=== PATIENT | female | born 1975 | race African-American/Black ===

== ENCOUNTER 2021-02-03 08:00 | Inpatient (IN) | payer OTHER, SELFPAY ==
[2021-02-03] VITALS (36 sets, daily range): BP systolic 113–163; BP diastolic 57–99; PULSE 76–113; RESP 18–35; TEMP 36.4–37.1; O2SAT 88–98; BMI 43.2
--- NOTE | ~2021-02-03 | CT_ITS ---
EXAMINATION: CTA chest PE protocol DATE: 02/03/2021 10:40 CDT INDICATION: Chest pain and shortness of breath. Chills. Cough. TECHNIQUE: Computed tomographic angiography (CTA) of the chest was performed with 100 mL Omnipaque-35 0 intravenous contrast. The dose-length product was 903.97 mGy-cm. Maximum intensity projection 3D-re constructions of the aorta and other arteries were constructed by the technologist on a separate work station. Automated exposure control and iterative reconstruction technique were employed. COMPARISON: None. FINDINGS: Study is technically limited for evaluation of pulmonary embolism due to contrast bolus nathaniel ing and motion artifact. No evidence for thoracic aortic aneurysm or dissection. No significant pleur al or pericardial effusion. No thoracic lymphadenopathy. There is extensive patchy airspace consolida tion, consistent with pneumonia. There is dependent high density material in the gallbladder which may represent sludge and/or stones. IMPRESSION: 1. Patchy bilateral airspace consolidation, consistent with pneumonia. 2: Study limited for evaluation of pulmonary embolism. 3: High density material in the gallbladder which may represent sludge and/or gallstones. Reviewed, dictated and finalized at location B. IMPRESSION: 1. Patchy bilateral airspace consolidation, consistent with pneumonia. 2: Study limited for evaluation of pulmonary embolism. 3: High density material in the gallbladder which may represent sludge and/or g allstones.
--- NOTE | ~2021-02-03 | XR_ITS ---
EXAMINATION: XR chest 1V portable INDICATION: Shortness of breath TECHNIQUE: Portable AP chest at 0905 hours COMPARISON: None available FINDINGS: There are diffuse patchy opacities throughout all lung zones, worse in the mid and lower jourdan ng zones. There is no pleural effusion or pneumothorax. The cardiomediastinal silhouette is normal. IMPRESSION: 1. Diffuse lung disease, consistent with pneumonia and/or pulmonary edema. Reviewed, dictated and finalized at location A.
--- NOTE | 2021-02-03 08:13 | ECG_ITS ---
Measurements Intervals [place] Rate: 96 P: 60 TX: 126 QRS: -11 QRSD: 93 T: -11 QT: 293 QTc: 371 Interpretive Statements SINUS RHYTHM BORDERLINE R WAVE PROGRESSION, ANTERIOR LEADS BORDERLINE T WAVE ABNORMALITY- INFERIOR LEADS BASELINE ARTIFACT- I, II, III, AVR, AVF, V1, V3-V6 BORDERLINE ECG Electronically Signed On 02-03-2021 8:21:42 CDT by Samuel Daniels D.O.
[2021-02-03] MEDS: Please add drug allergy info to patient profile. 1 EACH XX (08:26)
--- NOTE | 2021-02-03 08:33 | ED.SOB ---
HPI - SOB/Dyspnea General Chief Complaint: Chest Pain Stated Complaint: chest pain, N/V Time Seen by Provider: 02/03/21 08:12 History of Present Illness HPI Narrative: Feeling generally unwell for the past 3 days. Symptoms include nausea, vomiting, fatigue, cough, chest pain. Today she became very short of breath. Unsure if she has had a fever. Her friend reports that she seemed to be in and out of consciousness. She has not had her COVID-19 vaccine. She works in a daycare. Related Data Home Medications Medication Instructions Recorded Confirmed Claritin-D 24 Hour 1 tablet PO DAILY 02/03/21 02/03/21 amlodipine 10 mg PO DAILY 02/03/21 02/03/21 Allergies Allergy/AdvReac Type Severity Reaction Status Date / Time seasonal Allergy Congested Uncoded 02/03/21 12:31 Review of Systems Review of Systems: All systems reviewed & are unremarkable except as noted in HPI and below Constitutional: Constitutional: Reports chills, Reports fatigue and Reports weakness Eyes: Eyes: Reports no additional eye complaints ENT: Denies sore throat Cardiovascular: Cardiovascular: Reports chest pain and Denies radiating jaw, neck or arm pain Respiratory: Respiratory: Reports chest congestion, Reports cough and Reports dyspnea Gastrointestinal: Gastrointestinal: Reports nausea and Reports vomiting Genitourinary: Genitourinary: Reports no additional female genitourinary complaints Musculoskeletal: Musculoskeletal: Reports back pain and Reports myalgias Integumentary/Breasts: Skin/Breast: Reports system reviewed and no additional complaints, except as docu Neurologic: Reports headache(s) and Reports weakness Endocrine: Endocrine: Reports fatigue PMFSH Past Medical History Medical History (Updated 02/03/21 @ 18:03 by Haile Alas MD) Eczema HTN (hypertension) Seasonal allergies Surgical History Surgical History (Updated 02/03/21 @ 13:18 by Mikayla Contreras NP) H/O dilation and curettage H/O sinus surgery X2 Family History Family History (Updated 02/03/21 @ 13:21 by Mikayla Contreras NP) Grandparent Hypertension Mother Motor vehicle accident Father Kidney failure Social History Social History (Updated 02/03/21 @ 13:23 by Mikayla Contreras NP) Social History: The patient is single and has 4 children. 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 The patient is a lifelong nonsmoker. She does use edible marijuana. The patient socially drinks alcohol on the weekend. The patient is a full code. The patient desires to be a full code. Smoking status: Never smoker Alcohol intake: current Drinks per week: 3 Substance use: current Substance use type: marijuana Occupation/Education: daycare Gender identity (if verbalized by the patient): Female Spiritual care concerns: No Exam Const: General: alert and ill appearing Nutritional Appearance: obese Orientation/consciousness: patient oriented x3 Other: Mild distress HENMT: Head: normal to inspection Eyes: Pupils: Equal, round and reactive pupils present Neck: Neck: normal visual inspection Chest: Chest palpation & inspection: normal inspection of the chest and no tenderness Resp: Effort & Inspection: tachypneic Auscultation: crackles Cardio: Rate: tachycardic Rhythm: regular rhythm GI: GI Palp: Yes Soft to palpation and No Tenderness to palpation present (GI) Skin: General skin exam: normal color Neuro: General: patient oriented x3 and moves all extremities Extrem: Other: mild left ankle edema Course Vital Signs Vital signs: Vital Signs Pulse Rate 99 02/03/21 08:16 Respiratory Rate 35 H 02/03/21 08:16 Blood Pressure 145/76 H 02/03/21 08:16 Pulse Oximetry 95 02/03/21 08:16 Temperature 36.4 C 02/03/21 16:00 Pulse Rate 79 02/03/21 16:00 Respiratory Rate 18 02/03/21 16:00 Blood Pressure 131/66 02/03/21 16:00 Pulse Oximetry 96 02/03/21 16:00 MDM - SOB/Dyspnea Diff
[2021-02-03] MEDS: IPRATROPIUM BR 0.02% INH SOLN 0.5 MG/2.5 ML VIAL INHALATION ×2 (08:41→20:32)
[2021-02-03] MEDS: ALBUTEROL SULFATE NEB 2.5 MG/0.5 ML INH 5 MG INHALATION ×2 (08:42→20:32)
[2021-02-03 08:51] LABS: Basophils Percent Auto 0.1 % (0.2-1.2); Hemoglobin 13.4 g/dL (12.0-15.0); Immature Granulocyte Absolute 0.02 K/mm3 (0.00-0.031); Immature Granulocyte Percent A 0.3 % (0-0.5); Lymphocytes Percent Auto 9.9 % (18.3-44.2); Mean Corpuscular HGB Conc 32.7 g/dl (32-36); Mean Corpuscular Hemoglobin 26.1 pg (26-34); Mean Corpuscular Volume 79.8 fl (80-100); Mean Platelet Volume 11.1 fl (7.4-10.4); Monocytes Absolute Auto 0.1 K/mm3 (0.1-0.6); Neutrophils Absolute Auto 6.2 K/mm3 (1.3-6.7); Neutrophils Percent Auto 87.7 % (45.5-73.1); Platelet Count Result 245 k/mm3 (150-375); Red Blood Count 5.14 M/mm3 (4.2-5.4); White Blood Count 7.1 K/mm3 (4.5-10.0)
[2021-02-03] MEDS: DEXAMETHASONE SOD PHOS INJ 4 MG/ML VIAL 10 MG IV PUSH (08:51)
[2021-02-03 08:53] LABS: Alveolar/Arterial O2 Gradient 111.5 mmHg; Base Excess ABG -2.2 mEq/l (+/-2.0); Carboxyhemoglobin 0.6 % THb (0-2.0); Fractional Inspired Oxygen 28 %; HCO3 ABG 19.6 mEq/l (22.0-26.0); Methemoglobin ABG 0.3 %THb (0-1.5); Oxygen Content ABG 17.3 %vol (16.0-22.0); Oxygen Saturation ABG 92.3 % (95.0-100.0); Oxyhemoglobin 90.5 % THb (90.0-100.0); PCO2 ABG 26.3 mmHg (35.0-45.0); PO2 ABG 57.1 mmHg (80.0-100.0); PO2 FiO2 Ratio Arterial Blood 2.04 %; Reduced Hemoglobin 8.6 %THb (0-5.0); Total Hemoglobin 13.6 g/dL (12.0-18.0); pH ABG 7.491 (7.350-7.450)
[2021-02-03 08:54] LABS: Device NASAL CANNULA; Modified Allen's Test Pass; Site Drawn RIGHT RADIAL
[2021-02-03 09:15] LABS: Alanine Aminotransferase 31 U/L (4-35); Albumin Level 4.3 g/dL (3.5-5.1); Alkaline Phosphatase 79 U/L (38-126); Anion Gap 11 mmol/L (8-16); Aspartate Amino Transferase 54 U/L (14-36); Bilirubin,Total 0.8 mg/dL (0.2-1.3); Blood Urea Nitrogen 14 mg/dL (7-17); Calcium 10.7 mg/dL (8.4-10.2); Carbon Dioxide 21 mmol/L (22-30); Chloride 107 mmol/L (98-107); Estimated CRCL calculation 82 ml/min; Estimated Glomerular Filt Rate 59; Glucose 134 mg/dL (65-105); Lipase 152 U/L (23-300); Potassium 3.5 mmol/L (3.4-5.0); Sodium 139 mmol/L (137-145)
[2021-02-03 09:15] LABS: Add Urine Microscopic? YES; Appearance Urine Cloudy (Clear); Bacteria Urine Trace /hpf; Bilirubin Urine Negative (Negative); Blood Urine 1+ (Negative); Color Urine Amber (Yellow); Glucose Urine UA Negative (Negative); Ketones Urine Negative (Negative); Leukocyte Esterase Ur 2+ LEU/UL (Negative); Mucus Urine Few /lpf; Nitrate Urine Negative (Negative); Protein Urine 3+ mg/dL (Negative); RBC Urine 0-2 /hpf (0-2); Squamous Epithelial Cell Urine Many /hpf (Few); Urobilinogen Urine Negative mg/dL (<2.0)
[2021-02-03 09:21] LABS: Troponin I < 0.012 ng/mL (0.000-0.034)
[2021-02-03 09:24] LABS: NT Pro B Type Natriuretic Pept 17 pg/mL (5-100)
[2021-02-03 09:58] LABS: Prothrombin Time 13.4 Seconds (11.1-14.7)
[2021-02-03 09:59] LABS: Partial Thromboplastin Time 31.2 SECONDS (22.3-36.8)
[2021-02-03 10:01] LABS: D Dimer 0.83 ug/mL (<0.48)
--- NOTE | 2021-02-03 10:28 | PC.NURSE ---
Pt to CT.
[2021-02-03] MEDS: ONDANSETRON INJ 4 MG/2 ML VIAL IV PUSH (10:47)
[2021-02-03 12:03] LABS: Troponin I < 0.012 ng/mL (0.000-0.034)
--- NOTE | 2021-02-03 12:52 | ADMGEN ---
This patient, Andreea Mathur, was admitted to [facility] Surg Room 327-01 at 1205. Patient/family oriented to hospital policies and general routines including ID bracelet, bed and alarms, visiting hours, pain management, procedures, bathroom and other care routines, personal items, smoking policy, room service/diet, and visiting hours. Information on how to activate the Rapid Response Team has been discussed. Patient/Family are encouraged to report perceived risks to care and to ask questions if they do not understand what they are told or what they should do.
--- NOTE | 2021-02-03 12:57 | PM.IMHP ---
H&P: HPI History of Present Illness Date/Time: 02/03/21 12:57 this is a 45-year-old female patient who has a history of hypertension. 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 The patient denies having any sick contacts. However the patient stated she just has not been feeling very well for the last week and a half. She did notice that she had any fever. She stated over the last 3 days she became more short of breath. She does not typically have any lung issues nor does she smoke. She stated that she had a low-grade fever of 99.1 today. She has body aches. She is very fatigued. Chest x-ray was read as diffuse lung disease consistent with pneumonia and/or pulmonary edema. Patient was started on azithromycin Rocephin. She was placed on 2 L per nasal cannula. Her D-dimer was noted to be 0.[address] a pulmonary was performed and was read as1. Patchy bilateral airspace consolidation, consistent with pneumonia. 2: Study limited for evaluation of pulmonary embolism. 3: High density material in the gallbladder which may represent sludge and/or gallstones. Patient is being admitted to observation status on the date of service of 02/04/21. Chief Complaint: Short of breath Review of Systems Review of Systems: All systems reviewed & are unremarkable except as noted in HPI and below Constitutional: Constitutional: Reports as per HPI and Reports no additional constitutional complaints Eyes: Eyes: Reports as per HPI and Reports no additional eye complaints ENT: Reports system reviewed and no additional complaints, except as documented and Reports Normal hearing present Cardiovascular: Cardiovascular: Reports no additional cardiovascular complaints Respiratory: Respiratory: Reports no additional respiratory complaints and Reports no additional respiratory complaints Gastrointestinal: Gastrointestinal: Reports as per HPI and Reports no additional gastrointestinal complaints Musculoskeletal: Musculoskeletal: Reports no additional musculoskeletal complaints Integumentary/Breasts: Skin/Breast: Reports system reviewed and no additional complaints, except as docu and Reports as per HPI Neurologic: Reports system reviewed and no additional complaints, except as documented, Reports as per HPI and Reports Normal hearing present Psychiatric: Psychiatric: Reports no additional psychiatric complaints and Reports as per HPI Endocrine: Endocrine: Reports no additional endocrine complaints Hematologic/Lymphatic: Hematologic/Lymphatic: Reports no additional hematologic/lymphatic complaints Allergic/Immunologic: Allergic/Immunologic: Reports no additional allergic/immunologic complaints [facility] Past Medical History Medical History (Updated 02/03/21 @ 13:15 by Mikayla Contreras NP) Eczema HTN (hypertension) Seasonal allergies Surgical History Surgical History (Updated 02/03/21 @ 13:18 by Mikayla Contreras NP) H/O dilation and curettage H/O sinus surgery X2 Family History Family History (Updated 02/03/21 @ 13:21 by Mikayla Contreras NP) Grandparent Hypertension Mother Motor vehicle accident Father Kidney failure Social History Social History (Updated 02/03/21 @ 13:23 by Mikayla Contreras NP) Social History: The patient is single and has 4 children. 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 The patient is a lifelong nonsmoker. She does use edible marijuana. The patient socially drinks alcohol on the weekend. The patient is a full code. The patient desires to be a full code. Smoking status: Never smoker Alcohol intake: current Drinks per week: 3 Substance use: current Substance use type: marijuana Occupation/Education: daycare Gender identity (if verbalized by the patient): Female Spiritual care concerns: No Meds Home Medications and Allergies Home Medications Medication Instructions Recorded Confirmed Type Claritin-D 24 Hour 1 tablet PO DAILY 02/03/21 02/03/21 History amlodipi
[2021-02-03] MEDS: LORATADINE/PSEUDOEPHEDRINE (*CRX) 10/240 MG TABLET ER 24 HR 1 TAB PO (15:29)
[2021-02-03] MEDS: amLODIPine BESYLATE 5 MG TABLET 10 MG PO (15:29)
[2021-02-03] MEDS: SODIUM CHLORIDE 0.9% IV 1,000 ML 75 ML IV CONT (15:30)
--- NOTE | 2021-02-03 18:07 | PCRCNOTE ---
Window of time for administration has passed. See next scheduled administration.
[2021-02-04] VITALS (17 sets, daily range): BP systolic 131–156; BP diastolic 76–86; PULSE 76–98; RESP 16–24; TEMP 36.1–37; O2SAT 92–98
[2021-02-04] MEDS: ALBUTEROL SULFATE NEB 2.5 MG/0.5 ML INH 5 MG INHALATION ×3 (02:13→20:10)
[2021-02-04] MEDS: IPRATROPIUM BR 0.02% INH SOLN 0.5 MG/2.5 ML VIAL INHALATION ×3 (02:13→20:10)
[2021-02-04] MEDS: SODIUM CHLORIDE 0.9% IV 1,000 ML 75 ML IV CONT ×2 (06:22→18:09)
[2021-02-04 06:38] LABS: Lactic Acid Reflex 1.4 mmol/L (0.7-2.1)
[2021-02-04 06:42] LABS: Alanine Aminotransferase 32 U/L (4-35); Albumin Level 3.8 g/dL (3.5-5.1); Alkaline Phosphatase 74 U/L (38-126); Anion Gap 9 mmol/L (8-16); Aspartate Amino Transferase 47 U/L (14-36); Bilirubin,Total 0.5 mg/dL (0.2-1.3); Blood Urea Nitrogen 12 mg/dL (7-17); Calcium 10.7 mg/dL (8.4-10.2); Carbon Dioxide 22 mmol/L (22-30); Chloride 107 mmol/L (98-107); Estimated CRCL calculation 105 ml/min; Estimated Glomerular Filt Rate > 60; Glucose 149 mg/dL (65-105); Magnesium 2.1 mg/dL (1.6-2.3); Potassium 3.5 mmol/L (3.4-5.0); Sodium 138 mmol/L (137-145)
[2021-02-04 06:46] LABS: Hematocrit 40.3 % (37.0-47.0); Hemoglobin 12.9 g/dL (12.0-15.0); Mean Corpuscular Hemoglobin 25.9 pg (26-34); Mean Corpuscular Volume 80.9 fl (80-100); Mean Platelet Volume 12.4 fl (7.4-10.4); Platelet Count Result 190 k/mm3 (150-375); Red Blood Count 4.98 M/mm3 (4.2-5.4); Red Cell Distribution Width 16.2 % (11.5-14.5); White Blood Count 9.3 K/mm3 (4.5-10.0)
[2021-02-04 06:54] LABS: Lactate Dehydrogenase 786 U/L (313-618)
[2021-02-04 07:21] LABS: Atypical Lymphocytes Present; Lymphocytes Absolute Manual 0.74 K/mm3 (1.1-4.5); Neutrophils Percent Manual 92 % (46-73); Platelet Estimate Adequate (Adequate); Total Cells Counted 100
[2021-02-04] MEDS: amLODIPine BESYLATE 5 MG TABLET 10 MG PO (09:14)
[2021-02-04] MEDS: ENOXAPARIN 40 MG/0.4 ML SYRINGE SUB-Q ×2 (09:15→21:53)
[2021-02-04] MEDS: LORATADINE/PSEUDOEPHEDRINE (*CRX) 10/240 MG TABLET ER 24 HR 1 TAB PO (09:18)
[2021-02-04 14:35] LABS: SARS-CoV-2 RNA PCR Positive (Negative)
--- NOTE | 2021-02-04 16:14 | PM.IMPN ---
Progress Note: A&P Assessment and Plan (1) Pneumonia due to COVID-19 virus: Code(s): U07.1 - COVID-19; J12.82 - Pneumonia due to coronavirus disease 2019 Status: Acute Assessment and Plan: Symptom onset 4 days prior to presentation. Tested positive today. CXR at presentation with patchy bilateral airspace consolidation consistent with pneumonia. She is requiring 2 L supplemental O2. Continue IV dexamethasone started on 02/03 Begin IV remdesivir based on increased O2 requirements Discontinue IV antibiotics given viral etiology Supplemental O2 as needed goal saturation 92% or above Supportive care to include bronchodilators, expectorants, and antipyretics Trend acute phase reactants Continue isolation precautions (2) HTN (hypertension): Code(s): I10 - Essential (primary) hypertension Status: Chronic Assessment and Plan: Blood pressure reviewed and has been generally well controlled. Last BP 131/83. Continue with amlodipine. Subjective Date/time seen: 02/04/21 16:14 Interval history: Date of service: 02/04/2021 Andreea Mathur is a 45-year-old female with history of hypertension, seasonal allergies, and eczema who is seen in follow-up for COVID-19 pneumonia. She is starting to feel better. Her shortness of breath at rest is improving. She has mild BERNARD but has been able to ambulate up to the restroom today without any issues. She reports yellowish liquidy stools. This is becoming less frequent but remaining liquid. She has a sore throat. She is coughing occasionally with clear-yellowish sputum production. Denies nausea or vomiting. No fevers or chills. Denies headache. No anosmia or dysgeusia. No body aches. No abdominal pain. Appetite has been good. Denies chest pain or palpitations. No dizziness or lightheadedness. Review of Systems Review of Systems: All systems reviewed & are unremarkable except as noted in HPI and below Exam Narrative: Exam Narrative: Ms. Mathur is a well-nourished, well-appearing 45-year-old female who is lying semi-recumbent in bed. She appears comfortable and is in NARD. Neuro: awake, alert and oriented x4, speech clear, no focal neuro deficits noted HEENMT: normocephalic, atraumatic, EOMI, sclerae anicteric, moist oral mucosa, tongue midline, nares patent Neck: supple, no lymphadenopathy Respiratory: Diminished breath sounds bilaterally with faint crackles in right lung base, no wheezes, nonlabored breathing Cardio: regular rate, regular rhythm with S1-S2 Abdomen: nondistended, normoactive bowel sounds, soft, nontender to palpation Extremities: no edema, erythema, or tenderness to palpation, DP pulses 2+ bilaterally Skin: no rashes or lesions, warm and dry Psych: appropriate mood and affect, judgment and insight intact Objective Data Vital Signs Vital Signs: Vital Signs - 24 hr 02/03/21 20:00 02/03/21 20:32 02/03/21 20:45 Temperature 98.7 F Pulse Rate 88 82 88 Respiratory Rate 21 H 23 H 21 H Blood Pressure 163/80 H Pulse Oximetry 94 02/04/21 00:00 02/04/21 02:13 02/04/21 02:27 Temperature 98 F Pulse Rate 76 82 88 Respiratory Rate 20 22 H 22 H Blood Pressure 156/84 H Pulse Oximetry 98 02/04/21 04:00 02/04/21 07:41 02/04/21 07:52 Temperature 98.6 F Pulse Rate 76 81 85 Respiratory Rate 20 24 H 24 H Blood Pressure 148/86 H Pulse Oximetry 92 94 94 02/04/21 09:15 02/04/21 14:00 02/04/21 14:23 Temperature 97 F L Pulse Rate 98 90 Respiratory Rate 16 24 H Blood Pressure 131/83 Pulse Oximetry 94 96 02/04/21 14:33 Temperature Pulse Rate 89 Respiratory Rate 24 H Blood Pressure Pulse Oximetry Intake/Output Intake/Output: Intake & Output 02/01/21 02/02/21 02/03/21 02/04/21 23:59 23:59 23:59 23:59 Intake Total 1330 2520 Output Total 300 1000 Balance 1030 1520 Meds/Results Medications: Active Medications Generic Name Dose Route Start Last Ad
[2021-02-04] MEDS: REMDESIVIR 200 MG/NS 250 ML 200 MG/250 ML BAG 250 MG IVPB (16:56)
[2021-02-04 19:05] LABS: Alanine Aminotransferase 51 U/L (4-35); Estimated CRCL calculation 117 ml/min; Estimated Glomerular Filt Rate > 60
[2021-02-04 19:12] LABS: Prothrombin Time 13.9 Seconds (11.1-14.7)
[2021-02-04] MEDS: guaiFENesin 12 HR 600 MG TABCR PO (21:53)
[2021-02-05] VITALS (13 sets, daily range): BP systolic 131–160; BP diastolic 76–99; PULSE 69–101; RESP 18; TEMP 36.1–36.7; O2SAT 90–97
[2021-02-05] MEDS: ALBUTEROL SULFATE NEB 2.5 MG/0.5 ML INH 5 MG INHALATION ×4 (02:15→21:47)
[2021-02-05] MEDS: IPRATROPIUM BR 0.02% INH SOLN 0.5 MG/2.5 ML VIAL INHALATION ×4 (02:16→21:48)
[2021-02-05 06:09] LABS: Hematocrit 37.4 % (37.0-47.0); Hemoglobin 12.3 g/dL (12.0-15.0); Mean Corpuscular HGB Conc 32.9 g/dl (32-36); Mean Corpuscular Hemoglobin 27.2 pg (26-34); Mean Corpuscular Volume 82.6 fl (80-100); Mean Platelet Volume 12.6 fl (7.4-10.4); Platelet Count Result 244 k/mm3 (150-375); Red Blood Count 4.53 M/mm3 (4.2-5.4); Red Cell Distribution Width 16.3 % (11.5-14.5); White Blood Count 10.3 K/mm3 (4.5-10.0)
[2021-02-05 06:15] LABS: Prothrombin Time 13.6 Seconds (11.1-14.7)
[2021-02-05 06:29] LABS: Alanine Aminotransferase 54 U/L (4-35); Albumin Level 3.5 g/dL (3.5-5.1); Alkaline Phosphatase 67 U/L (38-126); Anion Gap 7 mmol/L (8-16); Aspartate Amino Transferase 63 U/L (14-36); Bilirubin,Total 0.6 mg/dL (0.2-1.3); Blood Urea Nitrogen 11 mg/dL (7-17); CRP 4.1 mg/dL (<1.0); Calcium 10.7 mg/dL (8.4-10.2); Carbon Dioxide 25 mmol/L (22-30); Chloride 107 mmol/L (98-107); Estimated CRCL calculation 117 ml/min; Estimated Glomerular Filt Rate > 60; Glucose 123 mg/dL (65-105); Potassium 3.4 mmol/L (3.4-5.0); Sodium 139 mmol/L (137-145)
[2021-02-05] MEDS: SODIUM CHLORIDE 0.9% IV 1,000 ML 75 ML IV CONT (08:22)
[2021-02-05] MEDS: guaiFENesin 12 HR 600 MG TABCR PO ×2 (08:23→21:47)
[2021-02-05] MEDS: SACCHAROMYCES BOULARDII 250 MG CAPSULE PO ×2 (08:23→17:11)
[2021-02-05] MEDS: amLODIPine BESYLATE 5 MG TABLET 10 MG PO (08:23)
[2021-02-05] MEDS: ENOXAPARIN 40 MG/0.4 ML SYRINGE SUB-Q ×2 (08:24→21:47)
[2021-02-05] MEDS: LORATADINE/PSEUDOEPHEDRINE (*CRX) 10/240 MG TABLET ER 24 HR 1 TAB PO (08:25)
--- NOTE | 2021-02-05 12:40 | PM.IMPN ---
Progress Note: A&P Assessment and Plan (1) Acute respiratory failure with hypoxia: Code(s): J96.01 - Acute respiratory failure with hypoxia Status: Acute Assessment and Plan: Secondary to COVID-19 pneumonia. Currently requiring 2 L supplemental oxygen and maintaining adequate O2 saturations. Continue supplemental oxygen with goal saturation 92% or above. Wean to goal. Plan as described below (2) Pneumonia due to COVID-19 virus: Code(s): U07.1 - COVID-19; J12.82 - Pneumonia due to coronavirus disease 2018 Status: Acute Assessment and Plan: Symptom onset 4 days prior to presentation. Tested positive 02/04/21. CXR at presentation with patchy bilateral airspace consolidation consistent with pneumonia. Continue IV dexamethasone started on 02/03 Continue IV remdesivir based on increased O2 requirements; started 02/04 Supportive care to include bronchodilators, expectorants, antipyretics, incentive spirometry Continue isolation precautions (3) HTN (hypertension): Code(s): I10 - Essential (primary) hypertension Status: Chronic Assessment and Plan: Blood pressure reviewed and has been generally well controlled. Last BP 136/79. Continue with amlodipine. Subjective Date/time seen: 02/05/21 12:40 Interval history: Date of service: 02/05/2021 Andreea Mathur is a 45-year-old female with history of hypertension, seasonal allergies, and eczema who is seen in follow-up for COVID-19 pneumonia. She is feeling better overall. She is coughing more frequently and able to get up more sputum. She reports her sputum is clear-white with occasional red streaking. She feels short of breath when she gets up and walks or after she has a coughing fit. She also notes that when she starts eating she has to pause to catch her breath. Denies wheezing. She has pleuritic chest pain when she coughs or takes a big breath in. She is still having diarrhea but it is lessening. Denies abdominal pain, nausea, or vomiting. No fevers or chills. No dizziness or lightheadedness. She is ambulating independently. Review of Systems Review of Systems: All systems reviewed & are unremarkable except as noted in HPI and below Exam Narrative: Exam Narrative: Ms. Mathur is a well-nourished, well-appearing 45-year-old female who is lying semi-recumbent in bed. She appears comfortable and is in NARD. Neuro: awake, alert and oriented x4, speech clear, no focal neuro deficits noted HEENMT: normocephalic, atraumatic, EOMI, sclerae anicteric Respiratory: Diminished breath sounds bilaterally without crackles, rhonchi, or wheezes. Breathing is nonlabored at rest and no conversational dyspnea but when she got up and walked to the bathroom breathing was labored. Wet cough heard during exam. Cardio: regular rate, regular rhythm with S1-S2 Abdomen: nondistended, normoactive bowel sounds, soft, nontender to palpation Extremities: no edema, erythema, or tenderness to palpation Skin: no rashes or lesions, warm and dry Psych: appropriate mood and affect, judgment and insight intact Objective Data Vital Signs Vital Signs: Vital Signs - 24 hr 02/04/21 14:00 02/04/21 14:23 02/04/21 14:33 Temperature 97 F L Pulse Rate 98 90 89 Respiratory Rate 16 24 H 24 H Blood Pressure 131/83 Pulse Oximetry 96 02/04/21 16:30 02/04/21 20:00 02/04/21 20:10 Temperature Pulse Rate 96 84 92 Respiratory Rate 20 Blood Pressure Pulse Oximetry 97 93 02/04/21 20:20 02/04/21 22:00 02/05/21 00:00 Temperature 97.5 F L Pulse Rate 97 90 71 Respiratory Rate 20 18 Blood Pressure 135/76 Pulse Oximetry 97 02/05/21 02:16 02/05/21 04:00 02/05/21 06:00 Temperature 97.3 F L Pulse Rate 69 84 92 Respiratory Rate 18 18 Blood Pressure 131/79 Pulse Oximetry 97 02/05/21 08:00 02/05/21 08:10 02/05/21 09:20 Temperature 98.0 F Pulse Rate 74 78 Respiratory Rate 18 1
[2021-02-05] MEDS: REMDESIVIR 100 MG/NS 250 ML 100 MG/250 ML BAG 250 MG IVPB (21:47)
[2021-02-05] MEDS: BENZOCAINE/MENTHOL (*BKC) 18 EA LOZENGE 1 LOZENGE PO (21:50)
[2021-02-06] VITALS (14 sets, daily range): BP systolic 140–165; BP diastolic 80–90; PULSE 71–98; RESP 18–20; TEMP 35.8–36.3; O2SAT 92–98
[2021-02-06] MEDS: IPRATROPIUM BR 0.02% INH SOLN 0.5 MG/2.5 ML VIAL INHALATION ×3 (02:50→14:58)
[2021-02-06] MEDS: ALBUTEROL SULFATE NEB 2.5 MG/0.5 ML INH 5 MG INHALATION ×3 (02:50→14:58)
[2021-02-06 06:32] LABS: Hematocrit 37.9 % (37.0-47.0); Hemoglobin 12.2 g/dL (12.0-15.0); Mean Corpuscular HGB Conc 32.2 g/dl (32-36); Mean Corpuscular Hemoglobin 25.5 pg (26-34); Mean Corpuscular Volume 79.1 fl (80-100); Mean Platelet Volume 10.7 fl (7.4-10.4); Platelet Count Result 396 k/mm3 (150-375); Red Blood Count 4.79 M/mm3 (4.2-5.4); White Blood Count 11.2 K/mm3 (4.5-10.0)
[2021-02-06 06:40] LABS: Prothrombin Time 13.7 Seconds (11.1-14.7)
[2021-02-06 06:51] LABS: Alanine Aminotransferase 61 U/L (4-35); Albumin Level 3.7 g/dL (3.5-5.1); Alkaline Phosphatase 71 U/L (38-126); Anion Gap 8 mmol/L (8-16); Aspartate Amino Transferase 48 U/L (14-36); Bilirubin,Total 0.6 mg/dL (0.2-1.3); Blood Urea Nitrogen 11 mg/dL (7-17); Calcium 10.8 mg/dL (8.4-10.2); Carbon Dioxide 25 mmol/L (22-30); Chloride 106 mmol/L (98-107); Estimated CRCL calculation 117 ml/min; Estimated Glomerular Filt Rate > 60; Glucose 125 mg/dL (65-105); Potassium 3.2 mmol/L (3.4-5.0); Sodium 139 mmol/L (137-145)
--- NOTE | 2021-02-06 11:00 | PCRCNOTE ---
HOME O2 EVAL COMPLETE, NO REQUIREMENTS
[2021-02-06] MEDS: guaiFENesin 12 HR 600 MG TABCR PO (11:11)
[2021-02-06] MEDS: amLODIPine BESYLATE 5 MG TABLET 10 MG PO (11:11)
[2021-02-06] MEDS: SACCHAROMYCES BOULARDII 250 MG CAPSULE PO ×2 (11:11→17:09)
[2021-02-06] MEDS: ENOXAPARIN 40 MG/0.4 ML SYRINGE SUB-Q (11:12)
[2021-02-06] MEDS: LORATADINE/PSEUDOEPHEDRINE (*CRX) 10/240 MG TABLET ER 24 HR 1 TAB PO (11:15)
[2021-02-06] MEDS: POTASSIUM CHLORIDE 20 MEQ TABLET 40 MEQ PO (11:25)
--- NOTE | 2021-02-06 16:30 | PM.DS ---
DS: Admitting Diagnosis Admitting Diagnosis Admitting Diagnosis: Covid-19 DS: Discharge Diagnosis Discharge Diagnosis (1) Acute respiratory failure with hypoxia: Code(s): J96.01 - Acute respiratory failure with hypoxia Status: Acute Assessment and Plan: Secondary to COVID-19 pneumonia. Currently requiring 2 L supplemental oxygen and maintaining adequate O2 saturations. Continue supplemental oxygen with goal saturation 92% or above. Wean to goal. Plan as described below (2) Pneumonia due to COVID-19 virus: Code(s): U07.1 - COVID-19; J12.82 - Pneumonia due to coronavirus disease 2018 Status: Acute Assessment and Plan: Symptom onset 4 days prior to presentation. Tested positive 02/04/21. CXR at presentation with patchy bilateral airspace consolidation consistent with pneumonia. Continue IV dexamethasone started on 02/03 Continue IV remdesivir based on increased O2 requirements; started 02/04 Supportive care to include bronchodilators, expectorants, antipyretics, incentive spirometry Continue isolation precautions (3) HTN (hypertension): Code(s): I10 - Essential (primary) hypertension Status: Chronic Assessment and Plan: Blood pressure reviewed and has been generally well controlled. Last BP 136/79. Continue with amlodipine. DS: Summary Hospital Course Hospital Course: Andreea Mathur is a 45-year-old female with history of hypertension, seasonal allergies, and eczema who is seen in follow-up for COVID-19 pneumonia. She is doing better overall. She is able to walk to the bathroom and was able to be off of her oxygen. She is independent in the room and does not show and signs of shortness of breath. She also stated that she feels good too. She only had one complaint and that was she was coughing a lot. She stated that when she coughed she gets up a yellow sputum. She has been treated for COVID with remdesivir and Decadron. She has been doing her IS and stated that she will continue to do what is asked of her. Status at Discharge Functional status at discharge: independent ambulation Overall status at discharge: patient is back to baseline Time Spent with Patient Time attestation: Total time spent providing and/or coordinating discharge services: Documentation, chart review, diagnostic testing, and medication and care planning,. Time spent: Greater than 30 minutes Exam Const: General: cooperative, healthy appearing, comfortable, no acute distress, well developed, alert, awake and Physically active Nutritional Appearance: average body habitus and well nourished Orientation/consciousness: oriented to person, oriented to place, oriented to time and patient oriented x3 Limitations: no limitations HENMT: Head: normal to inspection, No palpable skull fracture present, normocephalic and atraumatic Ears: hearing grossly normal bilaterally and external ears normal General nose exam: Normal external nose present and Normal nares present Eyes: General: appearance normal, both eyes and all related structures Alignment and Position: alignment normal Periorbital: periorbital findings normal Eyelids: eyelids normal Pupils: Equal, round and reactive pupils present EOM: EOMs intact bilaterally Neck: Neck: normal visual inspection, full ROM, no lymphadenopathy, trachea midline and supple Thyroid: thyroid normal Carotids: normal carotid upstroke Lymphatic: no lymphadenopathy noted Chest: Chest palpation & inspection: normal inspection of the chest Resp: Effort & Inspection: normal respiratory effort Auscultation: clear to auscultation bilaterally Percussion: percussion normal Cardio: Palpation: normal PMI Rate: regular rate Rhythm: regular rhythm Heart sounds: S1 normal heart sound present and S2 normal heart sound present Peripheral pulses: Peripheral pulses 2+ throughout GI: Inspection: normal to inspection Auscultation: normal bowel sounds Recta
[2021-02-06] MEDS: REMDESIVIR 100 MG/NS 250 ML 100 MG/250 ML BAG 250 MG IVPB (17:09)
== END 2021-02-06 19:00 | disposition home or self-care (01) | DRG 137 ==
LOC: ANHED 09:07 → ANH3MEDSUR 11:03
PROVIDERS: Nurse Practitioner; Physician Assistant; Admitting Provider Internal Medicine; Emergency Provider Emergency Medicine; PCP Physician Assistant; Visit Provider Family Medicine
DX: U07.1 COVID-19 (principal); J12.82 Pneumonia due to coronavirus disease 2019; J96.01 Acute respiratory failure with hypoxia; I10 Essential (primary) hypertension; L30.9 Dermatitis, unspecified; J30.1 Allergic rhinitis due to pollen; E66.9 Obesity, unspecified; Z68.41 Body mass index [BMI] 40.0-44.9, adult
CPT/HCPCS: 36415; 36600; 71045; 71275; 80053; 81001; 82375; 82565; 82805; 83050; 83605; 83615; 83690; 83735; 83880; 84443; 84460; 84484; 85025; 85027; 85380; 85610; 85730; 86140; 87040; 87077; 87086; 87088; 87186; 93005; 94618; 94640; 96361; 96365; 96366; 96367; 96368; 96372; 96375; 99291; A9270; C9803; G0378; G0379; J0456; J0696; J1100; J1650; J2405; J7030; Q9967; U0003; U0005